=== PATIENT | male | born 1985 | race Caucasian/White ===

== ENCOUNTER 2022-07-06 20:27 | Emergency (ER) | payer OTHER ==
[2022-07-06 21:16] LABS: RAPID STREP SCREEN Negative (Negative)
--- NOTE | 2022-07-06 21:24 | ED Physician Documentation ---
PD HPI URI - Stated complaint Stated Complaint: SORE THROAT - Chief complaint Chief Complaint: Heent - History obtained from History obtained from: Patient - Additional information Additional information: About 5 days of sore throat with cough. Low-grade fever last night. Low appetite. No runny nose. PD PAST MEDICAL HISTORY - Past Medical History Past Medical History: No - Past Surgical History Past Surgical History: No - Allergies Allergies/Adverse Reactions: Allergies Allergy/AdvReac Type Severity Reaction Status Date / Time No Known Drug Allergies Allergy Verified 07/06/22 21:00 - Social History Does the pt smoke?: No Smoking Status: Never smoker PD ED PE NORMAL - Vitals Vital signs reviewed: Yes - General General: Alert and oriented X 3, No acute distress - HEENT HEENT: PERRL, EOMI - Neck Neck: Other (Mildly red tonsillar pillars without exudates. No cervical adenopathy.) - Respiratory Respiratory: No respiratory distress, Clear bilaterally - Abdomen Abdomen: Non tender - Derm Derm: No rash Results - Vitals Vitals: Vital Signs - 24 hr 07/06/22 20:51 Temperature 37.2 C Heart Rate 95 Respiratory 16 Rate Blood Pressure 128/73 O2 Saturation 98 Oxygen O2 Source Room air - Labs Labs: Laboratory Tests 07/06/22 21:04 Group A Strep Rapid Negative Departure - Departure Disposition: 01 Home, Self Care Clinical Impression: Viral pharyngitis Condition: Good Record reviewed to determine appropriate education?: Yes Instructions: ED Pharyngitis Viral Comments: Tylenol and/or ibuprofen as needed for pain. Return for new or worsening symptoms. 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
[2022-07-06 21:30] VITALS: BP 137/72
== END 2022-07-06 21:29 | disposition home or self-care (01) ==
LOC: ED 20:27
DX: J02.8 Acute pharyngitis due to other specified organisms (principal)
CPT/HCPCS: 87070; 87430; 99283